=== PATIENT | male | born 1960 | race Caucasian/White ===

== ENCOUNTER 2018-09-21 10:29 | Emergency (ER) | payer BC ==
[~2018-09-21] VITALS: Ht 177.8 cm; Wt 151.9 kg
[2018-09-21] MEDS ORDERED: PREDNISONE20 MG PO (12:12)
[2018-09-21] MEDS ORDERED: VENTOLIN HFA18 GM INH (12:12)
--- NOTE | 2018-09-22 12:05 | EKG ---
[facility] [address] [facility] [place], [place] [address] Signed Normal sinus rhythm Normal ECG No previous ECGs available Confirmed by ARYAN ALCARAZ DO ([id number]) on 09/22/2018 12:05:18 PM Electronically Signed By: ARYAN ALCARAZ DO 09/22/18 1205 PATIENT NAME: WILLIAM HARVEY Electrocardiogram DATE OF : 60 PHYSICIAN: ARYAN ALCARAZ DO REPORT #: [id number] REPORT IS CONFIDENTIAL AND NOT TO BE RELEASED WITHOUT AUTHORIZATION
== END 2018-09-21 12:33 | disposition home or self-care (01) ==
LOC: ED 10:29
DX: J20.9 Acute bronchitis, unspecified (principal); Z85.828 Personal history of other malignant neoplasm of skin
CPT/HCPCS: 71046; 93005; 93010; 94640; 99283-25; J7512